=== PATIENT | female | born 1985 | race Two or more races ===

== ENCOUNTER → 2022-10-04 | Emergency (ER) | payer OTHER, MEDICAID ==
[~2022-10-04] VITALS: Ht 154.9 cm; Wt 64.0 kg
[~2022-10-04] MED LIST: ACETAMINOPHEN 650 mg PER 20.3 mL UD PO ONE; HYDROcodone-ACET 5/325MG TAB PO ONE; IOHEXOL 300 MG/ML 100ML BOTTLE IJ ONE; KETOROLAC TROMETH 30 MG/ML 1ML VIAL IV ONE; MAGNESIUM SULFATE 1GM/100ML 100 ML IV ONE; TAM04C PO; TAMSULOSIN HYDROCHLORIDE 0.4 MG CAP PO ONE
[2022-10-04 07:58] LABS: Basophils # (auto) 0 10 ^3/uL (0-0.2); Eosinophils # (auto) 0 10 ^3/uL (0-0.8); Eosinophils % (auto) 0.1 % (0.0-7.0); Hemoglobin 13.3 g/dL (12.2-16.2); Lymphocytes # (auto) 1.4 10 ^3/uL (0.4-5.4); Monocytes # (auto) 0.5 10 ^3/uL (0-1.3); Monocytes % (auto) 4.1 % (0.0-12.0); Neutrophils # (auto) 10.8 10 ^3/uL (1.6-8.6)
[2022-10-04 07:59] LABS: Basophils % (auto) 0.1 % (0.0-2.0); Hematocrit 41.8 % (36.0-46.0); Lymphocytes % (auto) 10.9 % (10.0-50.0); Mean Corpuscular Hemoglobin 26.2 pg (28.0-32.0); Mean Corpuscular Hgb Conc. 31.8 g/dL (32.0-36.0); Mean Corpuscular Volume 82.6 fL (80.0-100.0); Neutrophils % (auto) 84.8 % (37.0-80.0); Nucleated Red Blood Cells % 0.2 %; Red Blood Cells 5.07 10^6/uL (4.0-5.20); Red Cell Distribution Width 13.5 % (11.8-14.3); White Blood Cell 12.8 10^3/uL (4.4-10.8)
[2022-10-04 08:03] LABS: Urine WBC None Seen /hpf (0 - 5)
[2022-10-04 08:11] LABS: Urine Amorphous Crystal FEW /hpf (None Seen); Urine Bacteria FEW /hpf (None Seen); Urine Blood Negative /uL (Negative); Urine Mucus FEW (None Seen); Urine Specific Gravity 1.028 (1.001-1.035)
[2022-10-04 08:18] LABS: Albumin 4.2 g/dL (3.4-5.0); Calcium 8.9 mg/dL (8.5-10.1); Potassium 4.5 mmol/L (3.5-5.1)
[2022-10-04 08:23] LABS: Bilirubin, Total 0.3 mg/dL (0.2-1.0); Total Protein 8.4 g/dL (6.4-8.2)
[2022-10-04 12:43] VITALS: BP 107/71
== END | disposition home or self-care (01) ==
LOC: ER 07:07
DX: N23 Unspecified renal colic (principal)
CPT/HCPCS: 36415; 74177; 76830; 76856; 80053; 81001; 81025; 85025; 96365; 96375; 99285; J1885; J3475; Q9967